=== PATIENT | male | born 1995 | race African-American/Black ===

== ENCOUNTER 2018-11-09 10:07 | Emergency (ER) | payer OTHER ==
[2018-11-09 10:26] VITALS: PULSE 80; RESP 18; TEMP 98.2
--- NOTE | 2018-11-09 11:38 | ED ---
Neck Injury/Pain HPI - General Chief Complaint: Neck Pain/Injury Stated Complaint: [facility]-Neck Pain Time Seen by Provider: 11/09/18 10:29 Mode of arrival: ambulatory Limitations: no limitations - History of Present Illness Initial Comments: Patient is a 23-year-old male presenting to the emergency Department with complaints of pain in his left upper back and lower back times yesterday. Patient states he is currently working a new position and is lifting approximately 10 pound parts with each hand and throwing them in different locations. Patient states the pain yesterday and his upper back/lower neck area increased. Patient states he has only been in this position for about a week. Patient denies any history of prior neck or back surgeries or injuries. Patient denies any numbness, tingling in his upper or lower extremities, fever, chills, chest pain, shortness of breath. Arrival to ER, vital signs are stable, afebrile. - Related Data Previous Rx's Medication Instructions Recorded Ibuprofen [Motrin] 600 mg PO Q8HR PRN #30 tab 11/09/18 Allergies Allergy/AdvReac Type Severity Reaction Status Date / Time Penicillins Allergy Unknown Verified 11/09/18 10:23 Review of Systems ROS Statement: Those systems with pertinent positive or pertinent negative responses have been documented in the HPI. ROS Other: All systems not noted in ROS Statement are negative. Past Medical History Past Medical History: Asthma History of Any Multi-Drug Resistant Organisms: None Reported Past Surgical History: No Surgical Hx Reported Past Psychological History: No Psychological Hx Reported Smoking Status: Current every day smoker Past Alcohol Use History: None Reported Past Drug Use History: Marijuana General Exam - General Exam Comments Initial Comments: GENERAL: Well-appearing, well-nourished and in no acute distress. HEAD: Atraumatic, normocephalic. EYES: Pupils equal round and reactive to light, extraocular movements intact, sclera anicteric, conjunctiva are normal. ENT: TMs normal, nares patent, oropharynx clear without exudates. Moist mucous membranes. NECK: Normal range of motion, supple without lymphadenopathy or JVD. Mild tenderness to palpation of the upper left trapezius muscle. LUNGS: Breath sounds clear to auscultation bilaterally and equal. No wheezes rales or rhonchi. HEART: Regular rate and rhythm without murmurs, rubs or gallops. ABDOMEN: Soft, nontender, normoactive bowel sounds. No guarding, no rebound. No masses appreciated. : Deferred EXTREMITIES: Normal range of motion, no pitting or edema. No clubbing or cyanosis. Trunk has full range of motion. Mild pain to palpation of the left lumbar paraspinal. Sensation is equal and bilateral. Strength is 5 out of 5 in upper and lower extremity is. NEUROLOGICAL: Cranial nerves II through XII grossly intact. Normal speech, normal gait. PSYCH: Normal mood, normal affect. SKIN: Warm, Dry, normal turgor, no rashes or lesions noted. Limitations: no limitations Course Vital Signs 11/09/18 11/09/18 10:24 12:44 Temperature 98.2 F 98.2 F Pulse Rate 80 80 Respiratory 18 18 Rate Blood Pressure 120/83 122/74 O2 Sat by Pulse 100 100 Oximetry Medical Decision Making - Medical Decision Making Patient is a 23-year-old male presenting with mild lower neck and low back pain since yesterday. Patient is currently 1 week into a new position where he is lifting 10 pound parts and having to throw them in different locations. Patient denies any history of neck or back injuries or surgeries. On exam patient has very mild tenderness of the left trapezius muscle as well as the left lumbar paraspinals. Rest of exam is unremarkable. Patient is stable for discharge at this time. Discussed with patient to use stretches, heat, ice, NSAIDs for pain relief. Patient is agreement with this plan of care. Return parameters were discussed with the patient he verbalizes understanding. Case discussed with Dr. Conklin. Disposition Clinical Impression: Strain of left trapezius muscle, Low back pain Disposition: HOME SELF-CARE Condition: Stable Instructions (If sedation given, give patient instructions): Back Pain (ED) Additional Instructions: Please return to the Emergency Department if symptoms worsen or any other concerns. Use heat and/or ice as discussed. Use Motrin or Aleve for pain control. Prescriptions: Ibuprofen [Motrin] 600 mg PO Q8HR PRN #30 tab PRN Reason: Pain Is patient prescribed a controlled substance at d/c from ED?: No Referrals: None,Stated [Primary Care Provider] - 1-2 days
[2018-11-09 12:45] VITALS: BP 122/74
== END 2018-11-09 12:46 | disposition home or self-care (01) ==
LOC: EC 10:07
DX: S46.812A Strain of other muscles, fascia and tendons at shoulder and upper arm level, left arm, initial encounter (principal); M54.5 Low back pain; F17.200 Nicotine dependence, unspecified, uncomplicated; Z88.0 Allergy status to penicillin; X50.0XXA Overexertion from strenuous movement or load, initial encounter; Y93.89 Activity, other specified; Y92.69 Other specified industrial and construction area as the place of occurrence of the external cause; Y99.0 Civilian activity done for income or pay
CPT/HCPCS: 99283

== ENCOUNTER 2018-12-19 17:33 | Emergency (ER) | payer OTHER ==
[2018-12-19 17:50] VITALS: BP 142/89; PULSE 110; RESP 20; TEMP 98
[2018-12-19] MEDS ORDERED: metroNIDAZOLE 500 MG TAB PO STA (18:23)
--- NOTE | 2018-12-19 18:27 | ED ---
General Adult HPI - General Chief complaint: Recheck/Abnormal Lab/Rx Stated complaint: STD check Time Seen by Provider: 12/19/18 18:09 Source: patient, RN notes reviewed Mode of arrival: ambulatory Limitations: no limitations - History of Present Illness Initial comments: 23-year-old male presents to the emergency department for STD check. States his girlfriend was diagnosed with Trichomonas. States he would like to be checked for STDs and treated for Trichomonas. Denies any symptoms of this. Denies any penile drainage or discharge. Denies any testicular or abdominal pain. Denies fevers or chills. Denies any sores.Patient has no other complaints at this time including shortness of breath, chest pain, abdominal pain, nausea or vomiting, headache, or visual changes. - Related Data Previous Rx's Medication Instructions Recorded Ibuprofen [Motrin] 600 mg PO Q8HR PRN #30 tab 11/09/18 Allergies Allergy/AdvReac Type Severity Reaction Status Date / Time Penicillins Allergy Unknown Verified 12/19/18 17:50 Review of Systems ROS Statement: Those systems with pertinent positive or pertinent negative responses have been documented in the HPI. ROS Other: All systems not noted in ROS Statement are negative. Past Medical History Past Medical History: Asthma History of Any Multi-Drug Resistant Organisms: None Reported Past Surgical History: No Surgical Hx Reported Past Psychological History: No Psychological Hx Reported Smoking Status: Current every day smoker Past Alcohol Use History: None Reported Past Drug Use History: Marijuana General Exam Limitations: no limitations General appearance: alert, in no apparent distress Head exam: Present: atraumatic, normocephalic, normal inspection Eye exam: Present: normal appearance, PERRL, EOMI. Absent: scleral icterus, conjunctival injection ENT exam: Present: normal exam, mucous membranes moist Neck exam: Present: normal inspection Respiratory exam: Present: normal lung sounds bilaterally. Absent: respiratory distress, wheezes, rales, rhonchi, stridor Cardiovascular Exam: Present: regular rate, normal rhythm, normal heart sounds. Absent: systolic murmur, diastolic murmur, rubs, gallop, clicks GI/Abdominal exam: Present: soft, normal bowel sounds. Absent: distended, tenderness, guarding, rebound, rigid Course Vital Signs 12/19/18 17:48 Temperature 98 F Pulse Rate 110 H Respiratory 20 Rate Blood Pressure 142/89 O2 Sat by Pulse 99 Oximetry Medical Decision Making - Medical Decision Making Patient girlfriend tested positive for Trichomonas and patient would like to be treated for this. Patient agrees to tested for gonorrhea and chlamydia as well. I did recommend empiric treatment for these however patient refuses at this time and states that his girlfriend was negative for this and he would rather get the results before being treated. He is again denying any symptoms whatsoever such as fevers, penile discharge. Testicular pain, or pelvic pain. Patient was educated to make sure to follow up on the results. Disposition Clinical Impression: Encounter for assessment of STD exposure Disposition: HOME SELF-CARE Condition: Good Instructions (If sedation given, give patient instructions): Sexually Transmitted Diseases (ED) Additional Instructions: Do not drink alcohol. Please follow up on results on Tuesday. Return to the emergency department if you have any worsening symptoms. Is patient prescribed a controlled substance at d/c from ED?: No Referrals: Mateo Mcbride MD [REFERRING] - 1-2 days Time of Disposition: 18:26
[2018-12-19 18:58] LABS: Appearance,Urine Clear (Clear); Bilirubin,Urine Negative (Negative); Blood,Urine Negative (Negative); Color,Urine Yellow; Glucose,Urine (UA) Negative (Negative); Ketones,Urine Negative (Negative); Leukocyte Esterase,Urine Negative (Negative); Nitrite,Urine Negative (Negative); PH, Urine 6.5 (5.0-8.0); Protein,Urine Negative (Negative); Specific Gravity,Urine 1.022 (1.001-1.035); Urobilinogen,Urine <2.0 mg/dL (<2.0)
[2018-12-21 14:00] LABS: N. gonorrhoeae,PCR Negative (Neg,Equiv); Neisseria Source Urine
[2018-12-21 14:06] LABS: C. trachomatis,PCR Negative (Neg,Equiv); Chlamydia trachomatis Source Urine
== END 2018-12-19 19:09 | disposition home or self-care (01) ==
LOC: EC 17:33
DX: Z11.3 Encounter for screening for infections with a predominantly sexual mode of transmission (principal); F17.200 Nicotine dependence, unspecified, uncomplicated; Z88.0 Allergy status to penicillin; Z53.29 Procedure and treatment not carried out because of patient's decision for other reasons
CPT/HCPCS: 81003; 87491; 87591; 99283

== ENCOUNTER 2021-01-16 13:01 | Emergency (ER) | payer OTHER ==
[2021-01-16 13:34] VITALS: RESP 20
[2021-01-16] MEDS ORDERED: SODIUM CHLORIDE 0.9% 1,000 ML IV ONE (18:42)
[2021-01-16] MEDS ORDERED: ACETAMINOPHEN TAB 500 MG TAB PO STA (18:42)
--- NOTE | 2021-01-16 18:46 | ED ---
General Adult HPI - General Chief complaint: Upper Respiratory Infection Stated complaint: Headache, Congestion,Cough Time Seen by Provider: 01/16/21 18:29 Source: patient, RN notes reviewed, old records reviewed Mode of arrival: ambulatory Limitations: no limitations - History of Present Illness Initial comments: 25-year-old male presenting for evaluation of cough, myalgia, fever chills. He shouldn't is unvaccinated against coronavirus. He's been sick for approximately one week. He is otherwise healthy. He's had some nausea and vomiting, myalgia, dry cough and nasal congestion. - Related Data Home Medications Medication Instructions Recorded Confirmed Dm/Acetaminophen/Doxylamine [Vicks 5 ml PO Q12H PRN 01/16/21 01/16/21 Nyquil Cold-Flu Liquid] guaiFENesin SYRUP 100MG/5ML 100 mg PO Q12H PRN 01/16/21 01/16/21 [Robitussin] Allergies Allergy/AdvReac Type Severity Reaction Status Date / Time Penicillins Allergy Rash/Hives Verified 01/16/21 18:38 Review of Systems ROS Statement: Those systems with pertinent positive or pertinent negative responses have been documented in the HPI. ROS Other: All systems not noted in ROS Statement are negative. Past Medical History Past Medical History: Asthma History of Any Multi-Drug Resistant Organisms: None Reported Past Surgical History: No Surgical Hx Reported Past Psychological History: No Psychological Hx Reported Smoking Status: Current every day smoker Past Alcohol Use History: None Reported Past Drug Use History: Marijuana General Exam Limitations: no limitations General appearance: alert, in no apparent distress Head exam: Present: atraumatic, normocephalic Eye exam: Present: normal appearance, PERRL ENT exam: Present: mucous membranes dry Neck exam: Present: normal inspection. Absent: tenderness, meningismus Respiratory exam: Present: rhonchi. Absent: respiratory distress, wheezes Cardiovascular Exam: Present: regular rate, normal rhythm GI/Abdominal exam: Present: soft. Absent: distended, tenderness, guarding Extremities exam: Present: normal inspection, normal capillary refill. Absent: pedal edema Neurological exam: Present: alert, oriented X3, CN II-XII intact. Absent: motor sensory deficit Psychiatric exam: Present: normal affect, normal mood Skin exam: Present: warm, dry, intact. Absent: cyanosis, diaphoretic Course Vital Signs 01/16/21 13:32 Temperature 100.6 F H Pulse Rate 84 Respiratory 20 Rate Blood Pressure 149/78 O2 Sat by Pulse 99 Oximetry Medical Decision Making - Medical Decision Making 25-year-old male, 5 days of cough, congestion, myalgias. He does test positive for coronavirus. I did order Tylenol, IV fluids, and monoclonal antibodies however the patient declines. He does have stable vitals and normal oxygenation. He has normal respiratory rate. He will quarantine. - Lab Data Lab Results 01/16/21 Range/Units 13:40 Coronavirus (PCR) Detected A (Not Detectd) Disposition Clinical Impression: COVID-19 Disposition: HOME SELF-CARE Instructions (If sedation given, give patient instructions): Coronavirus Disease 2019 (COVID-19) Additional Instructions: These return with worsening breathing issues. Please monitor your oxygen levels at home with pulse oximeter. Please quarantined for 10 days. Is patient prescribed a controlled substance at d/c from ED?: No Referrals: None,Stated [Primary Care Provider] - 1-2 days Charlie Santoro [STAFF PHYSICIAN] - 1-2 days Time of Disposition: 18:45
[2021-01-16 19:03] VITALS: BP 146/76; PULSE 86; TEMP 100.7
== END 2021-01-16 19:03 | disposition home or self-care (01) ==
LOC: EC 13:01
DX: U07.1 COVID-19 (principal); J45.909 Unspecified asthma, uncomplicated; F17.200 Nicotine dependence, unspecified, uncomplicated; F12.90 Cannabis use, unspecified, uncomplicated; Z88.0 Allergy status to penicillin
CPT/HCPCS: 87635; 99284